=== PATIENT | female | born 1985 | race Two or more races ===

== ENCOUNTER 2018-06-28 14:49 | Emergency (ER) | payer OTHER ==
[~2018-06-28] VITALS: Ht 157.5 cm; Wt 77.1 kg
[2018-06-28 16:04] LABS: Urine Bacteria FEW /hpf (None Seen); Urine Blood Negative /uL (Negative); Urine Specific Gravity 1.003 (1.001-1.035); Urine WBC <1 /hpf (0 - 5)
[2018-06-28 16:07] VITALS: BP 110/70
== END 2018-06-28 18:10 | disposition home or self-care (01) ==
LOC: ER 14:49
DX: O23.41 Unspecified infection of urinary tract in pregnancy, first trimester (principal); Z3A.01 Less than 8 weeks gestation of pregnancy
CPT/HCPCS: 36415; 76801; 81001; 84702

== ENCOUNTER 2021-12-27 15:20 | Observation (INO) | payer BC, OTHER ==
[~2021-12-27] VITALS: Ht 157.5 cm; Wt 86.2 kg
[2021-12-27] MEDS ORDERED: BETAMETHASONE ACET (30mg/5ml) 5ml Vial 6mg/ml IM ONE (16:00)
[2021-12-27 16:34] LABS: Basophils # (auto) 0 10 ^3/uL (0-0.2); Basophils % (auto) 0.3 % (0.0-2.0); Eosinophils # (auto) 0.1 10 ^3/uL (0-0.8); Eosinophils % (auto) 0.9 % (0.0-7.0); Hematocrit 36.9 % (36.0-46.0); Hemoglobin 12.9 g/dL (12.2-16.2); Lymphocytes # (auto) 1.8 10 ^3/uL (0.4-5.4); Lymphocytes % (auto) 16.8 % (10.0-50.0); Mean Corpuscular Hemoglobin 32.8 pg (28.0-32.0); Mean Corpuscular Hgb Conc. 34.9 g/dL (32.0-36.0); Mean Corpuscular Volume 94.1 fL (80.0-100.0); Monocytes # (auto) 0.9 10 ^3/uL (0-1.3); Monocytes % (auto) 8.2 % (0.0-12.0); Neutrophils % (auto) 73.8 % (37.0-80.0); Red Blood Cells 3.92 10^6/uL (4.0-5.20); Red Cell Distribution Width 13.3 % (11.8-14.3); White Blood Cell 10.8 10^3/uL (4.4-10.8)
[2021-12-27 16:38] LABS: Urine Bacteria FEW /hpf (None Seen); Urine Blood 1+ /uL (Negative); Urine Specific Gravity 1.011 (1.001-1.035); Urine WBC 1 /hpf (0 - 5)
[2021-12-27 16:53] LABS: Alcohol, Urine < 3.0 mg/dL (0-10); Amphetamine Screen, Urine NEGATIVE (NEGATIVE); Barbiturate Scree,Urine NEGATIVE (NEGATIVE); Benzodiazephine Screen, Urine NEGATIVE (NEGATIVE); Cannabinoid Screen, Urine NEGATIVE (NEGATIVE); Cocaine Screen, Urine NEGATIVE (NEGATIVE); Opiate Scree,Urine NEGATIVE (NEGATIVE); Phencyclidine Screen, Urine NEGATIVE (NEGATIVE)
[2021-12-27 16:53] LABS: Albumin 2.4 g/dL (3.4-5.0); Calcium 8.7 mg/dL (8.5-10.1); Potassium 3.6 mmol/L (3.5-5.1)
[2021-12-27 16:57] LABS: BUN/Creatinine Ratio 12.2; Bilirubin, Total 0.2 mg/dL (0.2-1.0); Total Protein 6.6 g/dL (6.4-8.2); Uric Acid 3.4 mg/dL (2.6-6.0)
[2021-12-27 17:11] LABS: Partial Thromboplastin Time 32.5 sec (23.6-33.0)
[2021-12-27] MEDS ORDERED: PREN1TAB71 OR (17:14)
[2021-12-29 07:08] LABS: RPR Non Reactive (Non Reactive)
[2021-12-29 08:06] LABS: Rubella Antibodies, IgG 1.37 index (Immune >0.99)
== END 2021-12-27 17:32 | disposition home or self-care (01) ==
LOC: LDRP 15:20 → UNDOADMOB 15:20 → LDRP 15:37 → UNDODISOB 17:32
PROVIDERS: ADMIT Obstetrics & Gynecology; ATTEND Obstetrics & Gynecology
DX: O62.9 Abnormality of forces of labor, unspecified (principal); Z20.822 Contact with and (suspected) exposure to COVID-19; Z3A.35 35 weeks gestation of pregnancy
CPT/HCPCS: 36415; 59025; 76805; 80053; 80307; 81001; 81002; 82962; 84112; 84550; 85025; 85610; 85730; 86592; 86703; 86762; 86850; 86900; 86901; 87340; 87426; G0378; Q0114